=== PATIENT | female | born 1950 | race Caucasian/White ===

== ENCOUNTER → 2023-05-26 11:14 | Outpatient (REF) | payer MEDICARE, OTHER, SELFPAY | LOC: RAD 11:14 | PROVIDERS: ATTENDING PHYSICIAN Physician Assistant Surgical; FAMILY PHYSICIAN Nurse Practitioner | DX: M79.89 Other specified soft tissue disorders (principal); M79.661 Pain in right lower leg | CPT/HCPCS: 93971 ==

== ENCOUNTER → 2023-07-14 12:37 | Outpatient (REF) | payer MEDICARE, OTHER, SELFPAY ==
[2023-07-14 14:08] LABS: Hematocrit 44.2 % (37.0-47.0); Hemoglobin 14.9 g/dL (12.0-16.0); Mean Corp Hgb Conc. 33.7 g/dL (33.0-37.0); Mean Corpuscular Hgb 30.8 pg (27.0-31.0); Mean Corpuscular Volume 91.5 fL (81.0-99.0); Mean Platelet Volume 11.2 fL (7.4-10.4); Nucleated Red Blood Cells % 0 %; Platelet Count 263 10^3/uL (130-400); Red Blood Cell Count 4.83 10^6/uL (4.20-5.40); Red Cell Dist. Width 13.2 % (11.5-14.5); White Blood Cell Count 7.3 10^3/uL (4.8-10.8)
[2023-07-14 15:12] LABS: Absolute Neutrophils -Man Diff 3.7 10^3/uL (1.4-6.5); Atypical Lymphocytes 1 %; Band Neutrophils 3 % (0-3); Eosinophils 2 % (0-6); Lymphocytes 27 % (20-51); Monocytes 18 % (2-9); Segmented Neutrophils 48 % (42-75); TSH 1.17 uIU/ml (0.47-4.68)
[2023-07-14 15:13] LABS: Total Cells Counted 100
[2023-07-14 15:14] LABS: Normal RBC Morphology Yes; Platelets Checked Yes
== END ==
LOC: REG 12:37
PROVIDERS: ATTENDING PHYSICIAN Physician Assistant; FAMILY PHYSICIAN Nurse Practitioner
DX: L63.0 Alopecia (capitis) totalis (principal); E55.9 Vitamin D deficiency, unspecified
CPT/HCPCS: 36415; 82306; 84443; 85025

== ENCOUNTER → 2023-09-13 13:03 | Outpatient (REF) | payer MEDICARE, OTHER, SELFPAY ==
[2023-09-13 14:40] LABS: % Basophils 0.7 % (0-2); % Eosinophils 2.3 % (0-6); % Immature Granulocytes 0.4 % (0-0.5); % Lymphocytes 26.8 % (20.5-51.1); % Monocytes 11.8 % (1.7-9.3); Absolute Basophils 0.1 10^3/uL (0-0.2); Absolute Eosinophils 0.2 10^3/uL (0-0.7); Absolute Lymphocytes 1.9 10^3/uL (1.2-3.4); Absolute Monocytes 0.8 10^3/uL (0.1-0.6); Hematocrit 41.6 % (37.0-47.0); Hemoglobin 13.9 g/dL (12.0-16.0); Mean Corp Hgb Conc. 33.4 g/dL (33.0-37.0); Mean Corpuscular Hgb 30.7 pg (27.0-31.0); Mean Corpuscular Volume 91.8 fL (81.0-99.0); Mean Platelet Volume 11.6 fL (7.4-10.4); Nucleated Red Blood Cells % 0 %; Platelet Count 232 10^3/uL (130-400); Red Blood Cell Count 4.53 10^6/uL (4.20-5.40)
[2023-09-13 15:10] LABS: IgG 766 mg/dl (700-1600); IgM 52 mg/dl (40-230)
[2023-09-13 15:26] LABS: IgA 63 mg/dl (70-400)
== END ==
LOC: RAD 13:03
PROVIDERS: ATTENDING PHYSICIAN Allergy & Immunology; FAMILY PHYSICIAN Nurse Practitioner
DX: D84.9 Immunodeficiency, unspecified (principal); B99.9 Unspecified infectious disease
CPT/HCPCS: 36415; 82784; 85025; 86317

== ENCOUNTER 2023-11-29 11:51 | Inpatient (IN) | payer MEDICARE, OTHER, SELFPAY ==
[2023-11-03 14:32] LABS: Hematocrit 41.7 % (37.0-47.0); Hemoglobin 14.3 g/dL (12.0-16.0); Mean Corp Hgb Conc. 34.3 g/dL (33.0-37.0); Mean Corpuscular Hgb 31.2 pg (27.0-31.0); Mean Corpuscular Volume 90.8 fL (81.0-99.0); Mean Platelet Volume 10.7 fL (7.4-10.4); Platelet Count 269 10^3/uL (130-400); Red Blood Cell Count 4.59 10^6/uL (4.20-5.40); Red Cell Dist. Width 13.7 % (11.5-14.5); White Blood Cell Count 9.5 10^3/uL (4.8-10.8)
[2023-11-03 15:31] LABS: ALT (SGPT) 25 U/L (0-35); AST (SGOT) 27 U/L (14-36); Albumin 4.8 g/dl (3.5-5.0); Alkaline Phosphatase 74 U/L (38-126); Blood Urea Nitrogen 23 mg/dl (7-17); Calcium 10.3 mg/dl (8.4-10.2); Carbon Dioxide 27 mmol/L (22-30); Chloride 104 mmol/L (98-107); Glucose 134 mg/dl (70-99); Potassium 4.2 mmol/L (3.5-5.1); Sodium 143 mmol/L (135-145); Total Bilirubin 0.8 mg/dl (0.2-1.3); eGFR > 60.00
[2023-11-04 08:54] LABS: Glycohemoglobin (HgbA1c) 5.8 % (4.0-5.6)
--- NOTE | 2023-11-09 10:30 | VNURNOTE ---
Patient is scheduled for an elective right TKA on 11/29/23. She will be an overnight admission.
Spoke to patient on phone. She reports she lives in a second floor apartment. Once on second floor it is one level. She states she still needs a walker and will be asking ortho for a prescription. Patient's daughter Geri is emergency contact and
will be driving patient home on the day of discharge.
Reviewed she will have VN services the day after she gets home. Explained role of SN and PT in home. Homebound policy explained. Patient has no pets.
Patient selects [facility] for patient�s homecare needs. Referral completed in [facility]
PCP is Dr. Nery Thomas RX: is [facility]- [place] ([facility])
[2023-11-29] VITALS (11 sets, daily range): BP systolic 108–158; BP diastolic 55–93; BMI 44.3
[2023-11-29 12:18] LABS: Glucose - Point of Care 103 mg/dl (70-99)
[2023-11-29] MEDS: TYLENOL 650 MG PO ×3 (12:31→20:43)
[2023-11-29] MEDS: NORMOSOL-R/PLASMALYTE-A 1000 IV ×2 (12:32→16:52)
--- NOTE | 2023-11-29 15:25 | W.PN.UPDATE ---
Update Note
Progress Note Update
R knee OA s/p R TKA w/ Dr Tyler 11/29/23
- s/p L TKA 2016 at outside facility
DVT prophylaxis - Eliquis 2.5 mg PO BID x4 weeks per heme, b/l venous foot pumps
HTN - + parameters - monitor BP
RLE superficial phlebitis 1960s - provoked by OCs
L calf DVT and PE - provoked by L knee scope - tx w/ Coumadin
- Previous hypercoagulable w/u negative
- OAC determined by heme pre-op
- Promote frequent and early ambulation as tolerated
- B/l venous foot pumps at all times when non-ambulatory
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
- Add supplemental O2 HS
- Resume inhaler
- IS
NIDDM - monitor BS
- Resume home meds, + SSI
- Cefadroxil upon d/c
GI ulcer w/ bleed 2005 - start Protonix
Ambulatory dysfunction - on fall precautions
Hypercholesterolemia
Venous varicosities s/p stripping x3
Cystic kidney disease
Spontaneous subarachnoid hemorrhage 2011
Migraines
Depression
Anxiety
HSV
TYONEK
[2023-11-29 15:51] LABS: Glucose - Point of Care 98 mg/dl (70-99)
[2023-11-29] MEDS: ROXICODONE 5 MG PO (16:22)
[2023-11-29] MEDS: FLUSH (NSS) 1 FLUSH IV (16:53)
[2023-11-29 16:59] LABS: Glucose - Point of Care 123 mg/dl (70-99)
--- NOTE | 2023-11-29 17:30 | PTCARENOTE ---
pt admitted to room 2118 from the PACU at 1650. pt arrived awake and alert, via bed. pt oriented to room, call kinsey, bed controls and plan of care with verbalized understanding. admission database and assessment completed as documented. Right
knee surgical dressing with scant amount of drainage marked. will observe.
[2023-11-29] MEDS: JANUVIA 25 MG PO (18:31)
[2023-11-29] MEDS: ADVAIR HFA 230/21 MCG INHALER 2 PUFF INH (19:49)
[2023-11-29] MEDS: BACTROBAN 2% OINTMENT 1 APPLIC NASAL (20:42)
[2023-11-29] MEDS: COLACE 100 MG PO (20:43)
[2023-11-29] MEDS: ELIQUIS 2.5 MG PO (20:43)
[2023-11-29] MEDS: SENOKOT 17.2 MG PO (20:43)
[2023-11-29] MEDS: COZAAR 50 MG PO (20:51)
[2023-11-29] MEDS: INDERAL 10 MG PO (20:51)
[2023-11-29] MEDS: CRESTOR 20 MG PO (21:53)
[2023-11-29] MEDS: ANCEF 5 IV (21:53)
[2023-11-29] MEDS: AMBIEN 10 MG PO (21:54)
[2023-11-29 22:06] LABS: Glucose - Point of Care 164 mg/dl (70-99)
[2023-11-30] MEDS: TYLENOL 650 MG PO ×3 (00:39→08:21)
[2023-11-30] MEDS: ROXICODONE 5 MG PO (00:39)
[2023-11-30 03:06] VITALS: BP 126/77
[2023-11-30] MEDS: ANCEF 5 IV (05:50)
[2023-11-30] MEDS: ROXICODONE 10 MG PO ×2 (06:08→10:57)
[2023-11-30] MEDS: ADVAIR HFA 230/21 MCG INHALER 2 PUFF INH (07:06)
[2023-11-30 07:35] VITALS: BP 136/81
[2023-11-30 07:39] LABS: Glucose - Point of Care 150 mg/dl (70-99)
[2023-11-30] MEDS: BACTROBAN 2% OINTMENT 1 APPLIC NASAL (08:17)
[2023-11-30] MEDS: COZAAR PO (08:19)
[2023-11-30] MEDS: COLACE 100 MG PO (08:19)
[2023-11-30] MEDS: SENOKOT 17.2 MG PO (08:20)
[2023-11-30] MEDS: INDERAL 10 MG PO (08:20)
[2023-11-30] MEDS: ELIQUIS 2.5 MG PO (08:20)
[2023-11-30] MEDS: VITAMIN D3 (cholecalciferol) 50 MCG PO (08:20)
[2023-11-30] MEDS: CYMBALTA DELAYED RELEASE 20 MG PO (08:20)
[2023-11-30] MEDS: VALTREX 1000 MG PO (08:20)
[2023-11-30] MEDS: PROTONIX 40 MG PO (08:21)
[2023-11-30] MEDS: KLOR-CON 20 MEQ PO (08:21)
[2023-11-30] MEDS: DECADRON 4 MG PO (09:16)
[2023-11-30] MEDS: LIDOCAINE 4% PATCH 2 PATCH TOPICAL (09:17)
--- NOTE | 2023-11-30 09:30 | W.PN.ORTHO ---
Addendum entered and electronically signed by Henrietta Dickey PA-C 11/30/23 10:16:
Addendum: The patient was initially scheduled to have VN services and home PT upon d/c. She has done well w/ PT this AM and feels comfortable going to outpatient PT. She does have an appointment scheduled for tomorrow already. A script was provided
by [facility] pre-operatively. She confirms she has rides set up for the first few PT sessions.
Original Note:
Today's Communication / Plan
-
Await PT and OT evals.
D/c later today if remaining clinically stable.
Assessment
.
Distal Motor Intact: Yes
Dressing:
Small areas of bleeding noted by incision (expected w/ Eliquis).
Assessment:
R knee OA s/p R TKA w/ Dr Tyler 11/29/23
- s/p L TKA 2016 at outside facility
DVT prophylaxis - Eliquis 2.5 mg PO BID x4 weeks per heme, b/l venous foot pumps
HTN - + parameters - BPs stable
RLE superficial phlebitis 1960s - provoked by OCs
L calf DVT and PE - provoked by L knee scope - tx w/ Coumadin
- Previous hypercoagulable w/u negative
- OAC determined by heme pre-op
- Continue frequent and early ambulation as tolerated
- B/l venous foot pumps at all times when non-ambulatory inpatient
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
- Added supplemental O2 HS
- Resumed inhaler
- IS
Borderline DM (clarified with patient POD 1) - BS readings stable
- Resume home meds, + SSI inpatient
- Given stable BS readings and A1c of 5.8, will have pt take Dexamethasone post-op as anti-inflammatory (this was requested by patient as she can't have Meloxicam/Celebrex while on Eliquis)
- Cefadroxil upon d/c
GI ulcer w/ bleed 2005 - start Protonix
Ambulatory dysfunction - on fall precautions
Hypercholesterolemia
Venous varicosities s/p stripping x3
Cystic kidney disease
Spontaneous subarachnoid hemorrhage 2011
Migraines
Depression
Anxiety
HSV
MANZANITA
Plan
.
Surgery / Date: R TKA w/ Dr Tyler 11/29/23
DVT Prophylaxis: Other (Eliquis 2.5 mg PO BID )
Activity:
Out of bed.
PT/OT
Discharge Plan: Home w/ VN
Subjective
.
.:
Patient resting comfortably in bed this AM.
R knee/thigh pain relieved w/ Oxycodone prn. Denies calf pain.
Denies any new significant complaints.
Eager for potential d/c today.
Vital Signs and Labs
.
Vital Signs and Labs:
Lab Results
11/03/23 14:10
11/03/23 14:10
Temp Pulse Resp BP Pulse Ox
97.7 F 72 18 136/81 95
11/30/23 07:35 11/30/23 08:21 11/30/23 07:35 11/30/23 08:21 11/30/23 07:35
Non-invasive Hgb result: 13.4
Physical Exam
-
HEENT: No pallor, cyanosis, or jaundice. Throat clear.
NECK: Supple. No JVD.
RESPIRATORY: Lungs clear to auscultation.
CVS: S1, S2 normal. RRR.
ABDOMEN: Soft, non-tender. No distension. Morbidly obese.
EXTREMITIES: Mild post-op R knee swelling. Strength equal, no calf pain with palpation/dorsiflexion. Calves soft.
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 No focal deficits. tire trucker grossly intact
[2023-11-30 09:35] VITALS: BP 123/61; O2SAT 93
--- NOTE | 2023-11-30 09:48 | W.DS.TRANS ---
DC Summary - Credit Risk Manager
-
Discharge Instructions:
Discharge Diagnosis/Procedures R knee OA s/p R TKA w/ Dr. Tyler 11/29/23
Diet Regular
Activity With Walker,As tolerated
Driving Restrictions Not until seen by your Dr
Bathing Restrictions OK to Shower
Other Services PT
Wound Care Dressing to be removed 1 week post-surgery.
Instructions:
Stand-Alone Forms: Total Hip/Knee Replacement D/C
Changes to Home Medications: Yes
Discharge Medications:
DC Medications w/original date entered in [email or web address]
azelastine 137 mcg (0.1 %) nasal spray 1 spray intranasal BID Allergies 03/06/22
valacyclovir 1 gram tablet 1,000 mg PO DAILY Infection 03/06/22
zolpidem 10 mg tablet (Ambien) 10 mg PO HS PRN sleep 03/06/22
acyclovir 5 % topical ointment 1 applic topical 6XD PRN cold sores 11/23/23
albuterol sulfate 90 mcg/actuation aerosol inhaler 2 puff inhalation Q6H PRN asthma 11/23/23
biotin 10,000 mcg-keratin 100 mg tablet (Biotin Plus Keratin) 1 tab PO DAILY 11/23/23
cholecalciferol (vitamin D3) 50 mcg (2,000 unit) capsule (Vitamin D3) 50 mcg PO DAILY 11/23/23
duloxetine 20 mg capsule,delayed release 20 mg PO DAILY 11/23/23
fluticasone 232 mcg-salmeterol 14 mcg/actuation breath activated powdr 1 inh inhalation BID 11/23/23
fluticasone propionate 50 mcg/actuation nasal spray,suspension 2 spray intranasal HS 11/23/23
multivitamin 1 tab PO DAILY 11/23/23
mupirocin 2 % topical ointment 1 applic topical BID 11/23/23
potassium chloride 20 mEq oral packet (Klor-Con) 20 meq PO DAILY 11/23/23
rosuvastatin 20 mg tablet 20 mg PO HS 11/23/23
sitagliptin phosphate 25 mg tablet (Januvia) 25 mg PO QPM 11/23/23
Saccharomyces boulardii 250 mg capsule (Florastor) 250 mg PO DAILY #7 caps 11/30/23
acetaminophen 325 mg tablet 650 mg (2 x 325 mg) PO Q4HWA #30 tabs 11/30/23
apixaban 2.5 mg tablet (Eliquis) 2.5 mg PO BID Blood clot prevention/tx #60 tabs 11/30/23
cefadroxil 500 mg capsule 500 mg PO Q12H #14 caps 11/30/23
dexamethasone 4 mg tablet 4 mg PO BID Anti-inflammatory #7 tabs 11/30/23
docusate sodium 100 mg capsule 100 mg PO BID #30 caps 11/30/23
hydrochlorothiazide 25 mg tablet 25 mg PO DAILY Fluid retention/Swelling #1 tab 11/30/23
lidocaine 4 % topical patch 2 patch topical DAILY #30 ea 11/30/23
losartan 50 mg tablet 50 mg PO BID #1 tab 11/30/23
magnesium hydroxide 400 mg/5 mL oral suspension 30 ml PO HS #3,780 mL 11/30/23
ondansetron HCl 4 mg tablet 4 mg PO Q6H PRN nausea and vomiting #30 tabs 11/30/23
oxycodone 5 mg tablet 5 - 10 mg (1 - 2 x 5 mg) PO Q6H PRN moderate-severe pain #30 tabs 11/30/23
pantoprazole 40 mg tablet,delayed release 40 mg PO DAILY #30 tabs 11/30/23
propranolol 10 mg tablet 10 mg PO BID #1 tab 11/30/23
sennosides 8.6 mg tablet (Senna Laxative) 17.2 mg (2 x 8.6 mg) PO BID #30 tabs 11/30/23
Home Medication Changes
Saccharomyces boulardii 250 mg capsule (Florastor) 250 mg PO DAILY #7 caps 11/30/23
acetaminophen 325 mg tablet 650 mg (2 x 325 mg) PO Q4HWA #30 tabs 11/30/23
apixaban 2.5 mg tablet (Eliquis) 2.5 mg PO BID Blood clot prevention/tx #60 tabs 11/30/23
cefadroxil 500 mg capsule 500 mg PO Q12H #14 caps 11/30/23
dexamethasone 4 mg tablet 4 mg PO BID Anti-inflammatory #7 tabs 11/30/23
docusate sodium 100 mg capsule 100 mg PO BID #30 caps 11/30/23
lidocaine 4 % topical patch 2 patch topical DAILY #30 ea 11/30/23
magnesium hydroxide 400 mg/5 mL oral suspension 30 ml PO HS #3,780 mL 11/30/23
ondansetron HCl 4 mg tablet 4 mg PO Q6H PRN nausea and vomiting #30 tabs 11/30/23
oxycodone 5 mg tablet 5 - 10 mg (1 - 2 x 5 mg) PO Q6H PRN moderate-severe pain #30 tabs 11/30/23
pantoprazole 40 mg tablet,delayed release 40 mg PO DAILY #30 tabs 11/30/23
sennosides 8.6 mg tablet (Senna Laxative) 17.2 mg (2 x 8.6 mg) PO BID #30 tabs 11/30/23
Pending Results: No
--- NOTE | 2023-11-30 10:04 | CM ---
Reviewed the chart notes and spoke with the patient at the bedside. The patient resides alone in a second floor apartment with a flight of steps to enter. The patient has a rolling walker, shower chair, rails, raised toilet seat. The patient has
had [place] [facility] in the past, but no SNF. The patient's daughters will take turns staying with the patient during initial recovery. The patient's daughter will provide transportation home today. The patient anticipates going to outpatient therapy and
will use family and [employer] for transportational needs. The patient confirmed her pharmacy of choice is the [facility]. CM continues to be available to patient/family and is monitoring medical plan for needs at discharge.
Plan: Discharge to home today.
--- NOTE | 2023-11-30 10:13 | VNURNOTE ---
Received update from DUANE Shrestha. Patient comfortable going to outpt PT and has rides and rx. [facility]. CM Chanelle notified and [facility] Molly in Intake.
[2023-11-30 10:55] VITALS: BP 120/68
[2023-11-30 11:39] VITALS: BP 130/68; PULSE 73; O2SAT 93
== END 2023-11-30 12:35 | disposition home or self-care (01) | DRG 470 ==
LOC: 2 SOUTH 11:51
PROVIDERS: ADMITTING PHYSICIAN Specialist; FAMILY PHYSICIAN Nurse Practitioner
PROC: 0SRC0J9 Replacement of Right Knee Joint with Synthetic Substitute, Cemented, Open Approach (ICD-10-PCS; 2023-11-29)
DX: M17.11 Unilateral primary osteoarthritis, right knee (principal); Z68.41 Body mass index [BMI] 40.0-44.9, adult; E11.9 Type 2 diabetes mellitus without complications; I10 Essential (primary) hypertension; E66.9 Obesity, unspecified; G47.33 Obstructive sleep apnea (adult) (pediatric); Z87.11 Personal history of peptic ulcer disease; Z91.199 Patient's noncompliance with other medical treatment and regimen due to unspecified reason
CPT/HCPCS: 36415; 73560; 80053; 82962; 83036; 85027; 87070; 93005; 94640; 97110; 97116; 97162; 97166; 97535; C1713; C1776

== ENCOUNTER 2023-12-09 16:27 | Emergency (ER) | payer MEDICARE, OTHER, SELFPAY ==
[2023-12-09 16:29] VITALS: BP 148/88
[2023-12-09 16:49] LABS: % Basophils 0.5 % (0-2); % Eosinophils 1.9 % (0-6); % Immature Granulocytes 0.9 % (0-0.5); % Neutrophils 66.7 % (42.2-75.2); Absolute Basophils 0.1 10^3/uL (0-0.2); Absolute Eosinophils 0.2 10^3/uL (0-0.7); Absolute Immature Granulocytes 0.1 10^3/uL (0-0.05); Absolute Lymphocytes 2.2 10^3/uL (1.2-3.4); Absolute Monocytes 1.5 10^3/uL (0.1-0.6); Absolute Neutrophils 8.1 10^3/uL (1.4-6.5); Hematocrit 39.5 % (37.0-47.0); Hemoglobin 13.4 g/dL (12.0-16.0); Mean Corp Hgb Conc. 33.9 g/dL (33.0-37.0); Mean Corpuscular Hgb 30.6 pg (27.0-31.0); Mean Corpuscular Volume 90.2 fL (81.0-99.0); Mean Platelet Volume 10.1 fL (7.4-10.4); Nucleated Red Blood Cells % 0 %; Platelet Count 285 10^3/uL (130-400); Red Blood Cell Count 4.38 10^6/uL (4.20-5.40); Red Cell Dist. Width 14.2 % (11.5-14.5); White Blood Cell Count 12.1 10^3/uL (4.8-10.8)
[2023-12-09 17:03] LABS: ALT (SGPT) 23 U/L (0-35); AST (SGOT) 27 U/L (14-36); Alkaline Phosphatase 56 U/L (38-126); Blood Urea Nitrogen 26 mg/dl (7-17); Calcium 9.8 mg/dl (8.4-10.2); Carbon Dioxide 27 mmol/L (22-30); Chloride 106 mmol/L (98-107); D-Dimer 2.11 ug/mlFEU (0.00-0.50); Glucose 110 mg/dl (70-99); Potassium 4.6 mmol/L (3.5-5.1); Sodium 141 mmol/L (135-145); Total Bilirubin 0.9 mg/dl (0.2-1.3); Total Protein 6.2 g/dl (6.3-8.2); eGFR > 60.00
[2023-12-09 17:24] VITALS: BP 134/74
[2023-12-09 18:00] VITALS: BP 124/69
--- NOTE | 2023-12-09 18:08 | ED.GENMED ---
History of Present Illness
<Angy Villanueva NP - Last Filed: 01/17/24 15:46>
General
Chief Complaint: Breathing Problem
Source: patient
Exam Limitations: none
Time Seen by Provider: 12/09/23 18:07
Nursing documentation reviewed up to this point in time: agreed with
History of Present Illness
History of Present Illness:
Patient to ED with complaint of right sided chest pain, YEAGER. Chest pain started today but reports feeling SOB for the past few days. She had a PE in the past and feels her symptoms today are similar. Recent ortho surgery.
Past History
<Angy Villanueva NP - Last Filed: 01/17/24 15:46>
Past History
ED Past Medical History: Asthma, GERD, Hypercholesterolemia and Other (PE)
ED Past Surgical History: Orthopedic
Review of Systems
<Angy Villanueva NP - Last Filed: 01/17/24 15:46>
Review of Systems
Allergies reviewed?: Yes
All Other Systems: ROS reviewed and negative except as documented in HPI and ROS
Constitutional: Reports no symptoms
EENT: Reports no symptoms
Respiratory: Reports trouble breathing
Cardiac: Reports chest pain (right chest pain)
ABD/GI: Reports no symptoms
Musculoskeletal: Reports no symptoms (RTK last month)
Skin: Reports no symptoms
Neurological: Reports no symptoms
Psychiatric: Reports no symptoms
Phy Exam
<Angy Villanueva NP - Last Filed: 01/17/24 15:46>
General Physical Exam
General Presentation: well appearing and no apparent distress
General age: appears stated age
General Skin: warm and dry
General Habitus: normal
General Mental: alert
Cardiovascular Exam
Cardiovascular Exam: regular rate/rhythm
Pulmonary Exam
Pulmonary Exam: lungs clear and no respiratory distress
Musculoskeletal Exam
Musculoskeletal Exam: full ROM and neuro vasc intact
Skin Exam
Skin Exam: normal color, warm/dry and no rash
Psychiatric Exam
Psychiatric Exam: normal mood/affect
Scores
<Angy Villanueva NP - Last Filed: 01/17/24 15:46>
Heart Failure Risk
Heart Failure Risk Score: Not Applicable
Course
<Angy Villanueva NP - Last Filed: 01/17/24 15:46>
Orders/Labs/Results
Orders:
Orders
12/09/23 16:28
EKG [Electrocardiogram (*1)] Urgent
Reason for Study: Shortness of Breath
EKG- Treatment ONCE
12/09/23 16:43
CMP [Comprehensive Metabolic Panel] Urgent
Complete Blood Count/With Diff Urgent
D-Dimer Urgent
12/09/23 18:07
CT Chest Pe Study Urgent
Comment:
Reason For Exam: chest pain, elevated DDimer
12/09/23 18:36
US Periph Venous LOWER Ext RT Urgent
Comment:
Reason For Exam: pain and swelling, hx dvt
Abnormal Lab Results
12/09/23
16:43
WBC 12.1 H 10^3/uL
(4.8-10.8)
Abs Immat Gran (auto) 0.1 H 10^3/uL
(0-0.05)
Absolute Neuts (auto) 8.1 H 10^3/uL
(1.4-6.5)
Absolute Monos (auto) 1.5 H 10^3/uL
(0.1-0.6)
Immature Gran % 0.9 H %
(0-0.5)
Lymphocytes % 18.0 L %
(20.5-51.1)
Monocytes % 12.0 H %
(1.7-9.3)
D-Dimer 2.11 H ug/mlFEU
(0.00-0.50)
BUN 26 H mg/dl
(7-17)
Glucose 110 H mg/dl
(70-99)
Total Protein 6.2 L g/dl
(6.3-8.2)
12/09/23 16:43
12/09/23 16:43
Vital Signs
Initial and Last Documented VS:
Initial Vital Signs
Temp Pulse Resp BP Pulse Ox
97.8 F 91 22 148/88 98
12/09/23 16:29 12/09/23 16:29 12/09/23 16:29 12/09/23 16:29 12/09/23 16:29
Last Documented Vital Signs
Temp Pulse Resp BP Pulse Ox
97.8 F 94 14 168/78 97
12/09/23 16:29 12/09/23 20:45 12/09/23 20:45 12/09/23 20:45 12/09/23 20:15
<PATRICK Goldberg - Last Filed: >
Orders/Labs/Results
Orders:
Orders
12/09/23 16:28
EKG [Electrocardiogram (*1)] Urgent
Reason for Study: Shortness of Breath
EKG- Treatment ONCE
12/09/23 16:43
CMP [Comprehensive Metabolic Panel] Urgent
Complete Blood Count/With Diff Urgent
D-Dimer Urgent
12/09/23 18:07
CT Chest Pe Study Urgent
Comment:
Reason For Exam: chest pain, elevated DDimer
12/09/23 18:36
US Periph Venous LOWER Ext RT Urgent
Comment:
Reason For Exam: pain and swelling, hx dvt
Abnormal Lab Results
12/09/23
16:43
WBC 12.1 H 10^3/uL
(4.8-10.8)
Abs Immat Gran (auto) 0.1 H 10^3/uL
(0-0.05)
Absolute Neuts (auto) 8.1 H 10^3/uL
(1.4-6.5)
Absolute Monos (auto) 1.5 H 10^3/uL
(0.1-0.6)
Immature Gran % 0.9 H %
(0-0.5)
Lymphocytes % 18.0 L %
(20.5-51.1)
Monocytes % 12.0 H %
(1.7-9.3)
D-Dimer 2.11 H ug/mlFEU
(0.00-0.50)
BUN 26 H mg/dl
(7-17)
Glucose 110 H mg/dl
(70-99)
Total Protein 6.2 L g/dl
(6.3-8.2)
12/09/23 16:43
12/09/23 16:43
Vital Signs
Initial and Last Documented VS:
Initial Vital Signs
Temp Pulse Resp BP Pulse Ox
97.8 F 91 22 148/88 98
12/09/23 16:29 12/09/23 16:29 12/09/23 16:29 12/09/23 16:29 12/09/23 16:29
Last Documented Vital Signs
Temp Pulse Resp BP Pulse Ox
97.8 F 94 14 168/78 97
12/09/23 16:29 12/09/23 20:45 12/09/23 20:45 12/09/23 20:45 12/09/23 20:15
<Angy Villanueva NP - Last Filed: 01/17/24 15:46>
*Radiology
Radiology exam reviewed: radiology read reviewed
*Pulse Oximetry
Patient hypoxic: no
*Critical Care Note
Total Time (30-74mins, 75-104mins- exclusive of procedures): Not Applicable
<Angy Villanueva NP - Last Filed: 01/17/24 15:46>
Update Note
Update Note:
Ppatient to ED wth concern for PE. Had RTK 2 weeks ago. Hx of PE in her past. Labs reviewed. CT neg for PE, US neg for DVT. She is discharged home and will follow up with PCP. Given instructions on s/s to return to ED nd she is agreeable to
pln.
ED Attending Note
<PATRICK Goldberg - Last Filed: >
-
Portions of this chart may have been created with voice recognition software.� Occasional wrong word or��sound alike� substitutions may have occurred due to the inherent limitations of voice recognition software.
Discharge Plan
Departure
Patient Disposition: Home (Routine Discharge)
Date of Disposition: 12/09/23
Time of Disposition: 21:00
Patient with high blood pressure during this ER visit?: No
Condition: Good
Covid-19: Not Applicable
Discharge Problem:
Acute dyspnea
Instructions: Shortness of breath
Prescriptions:
No Action
valacyclovir 1 gram Tablet
1,000 mg PO DAILY
azelastine 137 mcg (0.1 %) Aerosol,[place]
1 spray INTRANASAL BID
zolpidem [Ambien] 10 mg Tablet
10 mg PO HS PRN (Reason: sleep)
potassium chloride [Klor-Con] 20 mEq Packet
20 meq PO DAILY
acyclovir 5 % Ointment
1 applic TOPICAL 6XD PRN (Reason: cold sores)
albuterol sulfate 90 mcg/actuation Hfa Aerosol Inhaler
2 puff INHALATION Q6H PRN (Reason: asthma)
fluticasone propionate 50 mcg/actuation [place],Suspension
2 spray INTRANASAL HS
rosuvastatin 20 mg Tablet
20 mg PO HS
duloxetine 20 mg Capsule,Delayed Release(Dr/Ec)
20 mg PO DAILY
Januvia 25 mg Tablet
25 mg PO QPM
fluticasone propion-salmeterol 232-14 mcg/actuation Aerosol Powdr Breath Activated
1 inh INHALATION BID
multivitamin Tablet
1 tab PO DAILY
cholecalciferol (vitamin D3) [Vitamin D3] 50 mcg (2,000 unit) Capsule
50 mcg PO DAILY
Biotin Plus Keratin 10,000-100 mcg-mg Tablet
1 tab PO DAILY
mupirocin 2 % Ointment
1 applic TOPICAL BID
docusate sodium 100 mg Capsule
100 mg PO BID Qty: 30 0RF
lidocaine 4 % Adhesive Patch,Medicated
2 patch topical DAILY Qty: 30 0RF
Rx Instructions:
Over the counter. 12 hours on, 12 hours off.
Do NOT apply over incision.
magnesium hydroxide 400 mg/5 mL Suspension
30 ml PO HS Qty: 3780 0RF
propranolol 10 mg Tablet
10 mg PO BID Qty: 1 0RF
pantoprazole 40 mg Tablet,Delayed Release (Dr/Ec)
40 mg PO DAILY Qty: 30 0RF
Rx Instructions:
Take daily while on Eliquis to prevent GI bleeding.
sennosides [Senna Laxative] 8.6 mg Tablet
17.2 mg PO BID Qty: 30 0RF
acetaminophen 325 mg Tablet
650 mg PO Q4HWA Qty: 30 0RF
Rx Instructions:
DO NOT exceed >4000 mg daily.
Alternative: 1000 mg every 6 hours.
losartan 50 mg Tablet
50 mg PO BID Qty: 1 0RF
Rx Instructions:
HOLD IF systolic blood pressure <130 while on Oxycodone.
ondansetron HCl 4 mg Tablet
4 mg PO Q6H PRN (Reason: nausea and vomiting) Qty: 30 0RF
Patient Comments:
*
Rx Instructions:
Prescribed by [facility] 11/25/23.
dexamethasone 4 mg Tablet
4 mg PO BID Qty: 7 0RF
Patient Comments:
*
Rx Instructions:
Prescribed by [facility] 11/25/23.
Start night of discharge and continue twice a day until finished.
Take with food.
hydrochlorothiazide 25 mg Tablet
25 mg PO DAILY Qty: 1 0RF
Rx Instructions:
HOLD IF systolic blood pressure <130 while on Oxycodone.
oxycodone 5 mg Tablet
5 - 10 mg PO Q6H PRN (Reason: moderate-severe pain) Qty: 30 0RF
Patient Comments:
*
Rx Instructions:
1 tab for moderate pain, 2 if severe.
Dx total joint. Take 1 hour prior to therapy.
Eliquis 2.5 mg Tablet
2.5 mg PO BID Qty: 60 0RF
Patient Comments:
*
Rx Instructions:
Prescribed by [facility] 11/25/23.
Start night of discharge and continue 2x daily for 4 weeks post-surgery.
cefadroxil 500 mg Capsule
500 mg PO Q12H Qty: 14 0RF
Patient Comments:
*
Rx Instructions:
Prescribed by [facility] 11/24/23.
Start night of discharge and continue every 12 hours until finished.
Saccharomyces boulardii [Florastor] 250 mg capsule
250 mg PO DAILY Qty: 7 0RF
Rx Instructions:
Over the counter. Take while on antibiotic.
If unavailable, choose a different probiotic.
Referrals:
Nery Thomas CRNP [Family Provider] - Tomorrow
Activity Restrictions/Additional Instructions:
Return to the emergency department immediately for any changes in/worsening of your symptoms.
Interventions
Interventions:
*Risk Screen - Suicide Last Done: 12/09/23 16:32
*General Assessment Last Done: 12/09/23 17:27
*Neglect/Abuse Screening Last Done: 12/09/23 16:32
*ED COVID-19 Vaccine History Last Done: 12/09/23 17:27
*Nursing Disposition Last Done: 12/09/23 21:10
ED- Cardiac Assessment Last Done: 12/09/23 17:26
ED- Pulmonary Assessment Last Done: 12/09/23 17:26
Discharge Date and Time
Discharge Date/Time: 12/09/23 21:11
Print Language: [id number]
[2023-12-09 18:41] VITALS: BMI 45.9
[2023-12-09 20:45] VITALS: BP 168/78
== END 2023-12-09 21:11 | disposition home or self-care (01) ==
LOC: EMR 16:27
PROVIDERS: EMERGENCY PHYSICIAN Emergency Medicine; FAMILY PHYSICIAN Nurse Practitioner
DX: R06.00 Dyspnea, unspecified (principal); R22.41 Localized swelling, mass and lump, right lower limb; Z86.711 Personal history of pulmonary embolism
CPT/HCPCS: 99285; 71275; 80053; 85025; 85379; 93005; 93971; Q9967

== ENCOUNTER → 2024-02-07 12:50 | Outpatient (REF) | payer MEDICARE, OTHER, SELFPAY ==
[2024-02-07 13:58] LABS: Urine Albumin Negative (Neg - Trace); Urine Bilirubin Negative (Negative); Urine Character Clear (Clear); Urine Color Yellow; Urine Glucose Negative (Negative); Urine Ketone Negative (Negative); Urine Leukocyte Negative (Negative); Urine Nitrite Negative (Negative); Urine Occult Blood Negative (Negative); Urine Specific Gravity 1.015 (<1.030); Urine Urobilinogen Negative (Neg - 1+)
[2024-02-07 15:00] LABS: Protein/creatinine Ratio 0.1; Urine Protein 5 mg/dl
[2024-02-07 15:35] LABS: Hematocrit 40.6 % (37.0-47.0); Hemoglobin 13.3 g/dL (12.0-16.0); Mean Corp Hgb Conc. 32.8 g/dL (33.0-37.0); Mean Corpuscular Hgb 31.1 pg (27.0-31.0); Mean Corpuscular Volume 94.9 fL (81.0-99.0); Mean Platelet Volume 11.5 fL (7.4-10.4); Platelet Count 237 10^3/uL (130-400); Red Blood Cell Count 4.28 10^6/uL (4.20-5.40); Red Cell Dist. Width 13.6 % (11.5-14.5); White Blood Cell Count 6.3 10^3/uL (4.8-10.8)
[2024-02-07 15:46] LABS: Blood Urea Nitrogen 16 mg/dl (7-17); Calcium 9.6 mg/dl (8.4-10.2); Carbon Dioxide 32 mmol/L (22-30); Chloride 102 mmol/L (98-107); Glucose 85 mg/dl (70-99); Magnesium 2.3 mg/dl (1.6-2.3); Phosphorus 3.2 mg/dl (2.5-4.5); Sodium 140 mmol/L (135-145); Uric Acid 3.5 mg/dl (2.5-6.2); eGFR > 60.00
[2024-02-09 11:31] LABS: Intact PTH 53.2 pg/ml (13.6-85.8)
== END ==
LOC: REG 12:50
PROVIDERS: ATTENDING PHYSICIAN Internal Medicine; FAMILY PHYSICIAN Nurse Practitioner
DX: N18.2 Chronic kidney disease, stage 2 (mild) (principal); Z79.1 Long term (current) use of non-steroidal anti-inflammatories (NSAID); R31.9 Hematuria, unspecified; R80.1 Persistent proteinuria, unspecified
CPT/HCPCS: 36415; 80048; 81003; 82570; 83735; 83970; 84100; 84156; 84550; 85027

== ENCOUNTER → 2025-02-26 15:32 | Outpatient (REF) | payer MEDICARE, OTHER, SELFPAY | LOC: RAD 15:32 | PROVIDERS: ATTENDING PHYSICIAN Nurse Practitioner | DX: R05.3 Chronic cough (principal) | CPT/HCPCS: 71046 ==